=== PATIENT | male | born 1975 | race Caucasian/White ===

== ENCOUNTER 2018-10-15 13:14 | Day surgery (SDC) | payer OTHER ==
[2018-10-15] MEDS ORDERED: diphenhydrAMINE 25 MG CAP PO ONE ×2 (13:19→14:06)
[2018-10-15] MEDS ORDERED: ASPIRIN EC 325 MG TAB PO ONE ×2 (13:19→14:06)
[2018-10-15] MEDS ORDERED: NS 1,000 ML IV ONE (13:19)
[2018-10-15] MEDS ORDERED: FAMOTIDINE 20 MG TAB PO ONE (13:19)
[2018-10-15] MEDS ORDERED: DIAZEPAM 5 MG TAB PO ONE (13:19)
[2018-10-15] MEDS ORDERED: FAMOTIDINE 20 MG TAB ONE (14:06)
[2018-10-15] MEDS ORDERED: DIAZEPAM 5 MG TAB ONE (14:06)
[2018-10-15 14:15] LABS: PLATELET COUNT 272 10^3/uL (150-400)
[2018-10-15 14:24] LABS: INR 1.02 (0.83-1.16)
[2018-10-15] MEDS ORDERED: MIDAZOLAM 2 MG/2 ML VIAL ONE (14:58)
[2018-10-15] MEDS ORDERED: VERAPAMIL 5 MG/2 ML VIAL ONE (14:58)
[2018-10-15] MEDS ORDERED: fentaNYL 100 MCG/2 ML INJ ONE (14:58)
[2018-10-15] MEDS ORDERED: HEPARIN 10,000 UNIT/10 ML MDV (1,000 UNIT/ML) ONE (14:59)
[2018-10-15] MEDS ORDERED: LIDOCAINE 1% 5 ML SDV ONE (15:00)
[2018-10-15] MEDS ORDERED: IOPAMIDOL (ISOVUE 370) 100 ML BTL IV ONE (15:00)
--- NOTE | 2018-10-15 15:13 | PDHPUP ---
History & Physical Update H&P update statement: This history and physical update is based on an assessment of the patient which was completed after admission or registration (within 24 hours), but prior to the surgery/procedure. Pt is 42 year old male with HTN and hyperlipidemia and morbid obesity of 405lbs who presented to the office last week with exertional chest pain and sob. He is planning on bariatiric surgery later this year. Risks and benefits discussed in detail. Agreeable to pursue. Consents signed H&P update: H&P reviewed & patient examined, no change in patient's condition since H&P completed
--- NOTE | 2018-10-15 15:13 | PDPROPOC ---
Sedation Plan of Care Sedation Plan of Care: mental status noted, patient educated of risks, benefits , alternatives, patient can tolerate sedation ASA Classification: ASA 2 Planned drugs: fentanyl, midazolam Mallampati Score: Class 2 Mallampati Reference Image: Patient passed 3-3-2 rule?: Yes
[2018-10-15] MEDS ORDERED: ATROPINE SULFATE 1 MG/10 ML SYR IVP PRN (16:17)
--- NOTE | 2018-10-15 16:33 | CPIP ---
[f rep st] INVASIVE CARDIAC PROCEDURE DATE OF PROCEDURE: 10/15/2018 PROCEDURE PERFORMED: Diagnostic left heart catheterization. INDICATION FOR PROCEDURE: The patient with complaints of exertional chest tightness and dyspnea on e xertion. Preop evaluation in anticipation of bariatric surgery. In the setting of morbid obesity at 405 pounds, the patient presents for left heart catheterization. DESCRIPTION OF PROCEDURE: After informed consent was obtained for left heart catheterization, percut aneous coronary intervention and sedation, the patient was brought to the cardiovascular lab where he was prepped and draped in a sterile fashion. Right radial artery was accessed without difficulty. A sheath was placed in the right radial artery. JR 3.5 catheter was used to cannulate the right anastacio nary artery. Right coronary artery was imaged in multiple projections. JR 3.5 catheter was exchange d over an exchange-length catheter for a JL 3.5 catheter. JL 3.5 catheter was used to take images of the left coronary anatomy in multiple projections. JL 3.5 catheter was exchanged over a guidewire f or an angled pigtail catheter. Angled pigtail catheter was used to cross the aortic valve. LVEDP wa s assessed. Left ventriculogram was performed. The angled pigtail catheter was removed over wire wi thout complications. FINDINGS: 1. Left main normal size and caliber, bifurcates into left anterior descending and left circumflex c oronary artery. There is no evidence of coronary disease within the left main. 2. Left anterior descending demonstrates mild luminal irregularities in the midportion of the vessel . There is a moderate-sized first, second and third diagonal branch with no evidence of coronary dis ease. 3. Circumflex vessel is a codominant vessel. There are mild luminal irregularities within the midpo rtion of the circumflex vessel. There is a moderate-sized first obtuse marginal branch with no evide nce of coronary disease. 4. Right coronary artery is a large-caliber vessel. There is evidence of mild luminal irregularitie s to the midportion of the vessel. HEMODYNAMICS: LVEF 60% to 65%. LVEDP 17 mmHg. Aortic valve gradient, none. CONCLUSION: 1. Mild nonobstructive coronary artery disease. 2. Normal left ventricular function. 3. Mildly elevated LVEDP at 17 mmHg. PLAN: 1. Recommend optimal medical management with statin with goal LDL less than 70. 2. Recommend continued blood pressure control. 3. Initiate aspirin 81 mg daily. /[id number]/MODL
--- NOTE | 2018-10-22 10:58 | CPEKG ---
Test Reason : OPEN Blood Pressure : / mmHG Vent. Rate : 093 BPM Atrial Rate : 093 BPM P-R Int : 163 ms QRS Dur : 093 ms QT Int : 360 ms P-R-T Axes : 052 050 031 degrees QTc Int : [address] elev, probable normal early repol pattern Confirmed by Tim Lord ([id number]) on 10/22/2018 10:58:34 AM Referred By: Milad Magaña Confirmed By:Tim Lord
== END 2018-10-15 18:24 | disposition home or self-care (01) ==
LOC: FCATH 13:14
PROVIDERS: ATTEND Internal Medicine Cardiovascular Disease
DX: I25.10 Atherosclerotic heart disease of native coronary artery without angina pectoris (principal); G47.33 Obstructive sleep apnea (adult) (pediatric); I10 Essential (primary) hypertension; E66.01 Morbid (severe) obesity due to excess calories; Z68.41 Body mass index [BMI] 40.0-44.9, adult
CPT/HCPCS: 93458; C1769; J1644; J2250; J3010; Q9967